=== PATIENT | male | born 1955 | race Caucasian/White ===

== ENCOUNTER 2018-07-03 14:26 | Emergency (ER) | payer OTHER ==
[~2018-07-03] VITALS: Ht 165.1 cm; Wt 75.7 kg
[2018-07-03 14:32] VITALS: Ht 165.1 cm; Wt 75.7 kg
[2018-07-03 17:04] VITALS: BP 161/83
== END 2018-07-03 17:04 | disposition home or self-care (01) ==
LOC: ED 14:26
DX: R53.1 Weakness (principal); Z76.0 Encounter for issue of repeat prescription; I10 Essential (primary) hypertension; E11.9 Type 2 diabetes mellitus without complications; Z94.0 Kidney transplant status